=== PATIENT | female | born 1955 | race Caucasian/White ===

== ENCOUNTER 2024-07-18 14:19 | Emergency (ER) | payer MEDICARE, OTHER, SELFPAY ==
[2024-07-18 14:24] VITALS: BP 170/94
--- NOTE | 2024-07-18 16:54 | ED.MUSCINJ ---
HPI-Injury
General
Chief Complaint: Fall
Source: patient
Exam Limitations: none
Time Seen by Provider: 07/18/24 16:07
Nursing documentation reviewed up to this point in time: agreed with
History of Present Illness-Injury
Is this injury a work related problem?: No
Is pt an associate of [facility]?: No
Initial Injury comments:
Patient states she tripped and fell at [employer] while attending [employer] game. Denies hitting her head. COmplains of pain to bilateral palmar hands right anterior, lateral, and posterior chest wall pain. Incident occurred just [employer].
Brought to ED via EMS for eval
Past History
Past History
ED Past Medical History: Arrthythmia (afib) and HTN
ED Past Surgical History: Orthopedic
Review of Systems
Review of Systems
Allergies reviewed?: Yes
All Other Systems: ROS reviewed and negative except as documented in HPI and ROS
Constitutional: Reports no symptoms
EENT: Reports no symptoms
Respiratory: Reports no symptoms
Cardiac: Reports no symptoms
ABD/GI: Reports no symptoms
: Reports no symptoms
Musculoskeletal: Reports joint pain (Initially had pain to bilateral palmar hands, now minimal discomfort. right ant,post, lat chest wall pain)
Skin: Reports no symptoms
Neurological: Reports no symptoms
Psychiatric: Reports no symptoms
Musculoskeletal Injury Exam
Musculoskeletal Injury Exam
Bilateral Palmar Hand:
Pain with Movement?: Mild
Tender to palpation?: Mild
Soft tissue swelling?: None
External deformity and angulation?: None
Joint effusion?: None
Contusion?: Mild
Hematoma-local bleeding into tissue?: None
Strain- Sprain- Tear (Connective tissue injury)?: None
Crepitus with movement?: No
Joint instability?: No
Malalignment/deformity?: No
Range of motion: Full
Distal skin color and temperature: normal-warm & good color
Capillary Refill: normal
Normal distal neurovascular exam?: Yes
Right anterior, posterior, lateral chest wall pain:
Pain with Movement?: Moderate
Tender to palpation?: Moderate
Soft tissue swelling?: None
External deformity and angulation?: None
Joint effusion?: None
Contusion?: Moderate
Hematoma-local bleeding into tissue?: None
Strain- Sprain- Tear (Connective tissue injury)?: None
Crepitus with movement?: No
Joint instability?: No
Malalignment/deformity?: No
Range of motion: Limited
Distal skin color and temperature: normal-warm & good color
Capillary Refill: normal
Normal distal neurovascular exam?: Yes
Phy Exam
General Physical Exam
General Presentation: well appearing and mild distress
General age: appears stated age
General Skin: warm and dry
General Habitus: normal
General Mental: alert
General Hydration: appears well hydrated
Cardiovascular Exam
Cardiovascular Exam: regular rate/rhythm
Pulmonary Exam
Pulmonary Exam: no respiratory distress
Chest Wall: Right anterior: tenderness, Right posterior: tenderness and Right lateral: tenderness
Neurological Exam
Neurological Exam: alert, oriented x3, CN II-XII intact, no motor deficits, no sensory deficits and normal gait
Musculoskeletal Exam
Musculoskeletal Exam: full ROM and neuro vasc intact
Skin Exam
Skin Exam: normal color, warm/dry and no rash
Injury Course
Orders/Labs/Results
Orders:
Orders
07/18/24 14:29
CR Hand - Left Min 3 Views Urgent
Comment:
Reason For Exam: pain
CR Ribs-right 3 Vw W/pa Chest* Urgent
Comment:
Reason For Exam: pain
Hand, Right 3 View [CR Hand - Right Min 3 Views] Urgent
Comment:
Reason For Exam: pain
07/18/24 14:30
CR Thoracic Spine 3 Views Urgent
Reason For Exam: pain
07/18/24 16:52
Acetaminophen [Tylenol] 1,000 mg PO NOW STA
*Radiology
Radiology exam reviewed: radiology read reviewed (metal FB left index finger is an old finding confirmed by pateint.)
*Pulse Oximetry
Patient hypoxic: no
*Critical Care Note
Total Time (30-74mins, 75-104mins- exclusive of procedures): Not Applicable
Update Note
Update Note:
Xray report reviewed. Metallic foreign body noted proximal left index finger. I discussed this with her. She states this is old and she is aware of this finding. No wounds noted on her finger/hand.
ED Attending Note
-
Portions of this chart may have been created with voice recognition software.� Occasional wrong word or��sound alike� substitutions may have occurred due to the inherent limitations of voice recognition software.
Discharge Plan
Departure
Patient Disposition: Home (Routine Discharge)
Date of Disposition: 07/18/24
Time of Disposition: 16:52
Patient with high blood pressure during this ER visit?: No
Condition: Good
Covid-19: Not Applicable
Discharge Problem:
Chest wall contusion, Contusion of hand, Back pain
Instructions: Contusion (DC), Using Cold for Pain
Referrals:
NONE,* [Family Provider] -
Activity Restrictions/Additional Instructions:
Follow up with your family doctor.
Interventions
Interventions:
*Risk Screen - Suicide Last Done: 07/18/24 14:24
*General Assessment Last Done: 07/18/24 14:55
*Neglect/Abuse Screening Last Done: 07/18/24 14:24
ED- Fall Risk Assessment Last Done: 07/18/24 14:55
*ED COVID-19 Vaccine History Last Done: 07/18/24 14:55
*Nursing Disposition Last Done: 07/18/24 17:08
ED-Musculoskeletal Assessment Last Done: 07/18/24 14:55
ED- Neurological Assessment Last Done: 07/18/24 14:55
ED-Skin Assessment Last Done: 07/18/24 14:55
Discharge Date and Time
Discharge Date/Time: 07/18/24 17:09
Print Language: MALAGASY
[2024-07-18 17:03] VITALS: BP 171/96
[2024-07-18] MEDS: TYLENOL 1000 MG PO (17:03)
== END 2024-07-18 17:09 | disposition home or self-care (01) ==
LOC: EMR 14:19
PROVIDERS: EMERGENCY PHYSICIAN Emergency Medicine
DX: S20.211A Contusion of right front wall of thorax, initial encounter (principal); S60.222A Contusion of left hand, initial encounter; S60.221A Contusion of right hand, initial encounter; M54.6 Pain in thoracic spine; W00.0XXA Fall on same level due to ice and snow, initial encounter; I10 Essential (primary) hypertension; I48.91 Unspecified atrial fibrillation
CPT/HCPCS: 99284; 71101; 72072; 73130